=== PATIENT | female | born 1965 | race Caucasian/White ===

== ENCOUNTER → 2016-12-21 | Day surgery (SDC) | payer BC ==
[~2016-12-21] MED LIST: ESCI20TA PO; ESTR1.25 PO; IBUP200C PO; INCOBOTULINUMTOXINA 200 UNITS VIAL IM ONE; LANS30CA PO; SODIUM CHLORIDE 0.9% 10 ML VIAL ONE; TIRO100C PO; TIZA4CAP3 PO; TRAM50TA PO
--- NOTE | 2016-12-23 20:51 | M6 ---
cc: KATHYA GARCIA M.D. DATE: 12/21/2016. DATE OF : 1965. PROCEDURE PERFORMED: Injection botulinum toxin type A (Xeomin) left trapezius and posterior cervical musculature. DESCRIPTION OF THE PROCEDURE IN DETAIL: History and physical was completed and signed. Consent was signed. Procedure site was marked. Medications were listed and reconciled. Pain score was recorded. Allergies were noted. Time out was taken. Fluoroscopy time was recorded where applicable. Blood pressure cuff, pulse oximeter were applied. The patient was placed in the sitting position. The skin over the left trapezius and cervical area was prepped with alcohol. The areas of greatest spasticity were identified. A 27-gauge needle was used to inject a total of 150 units of Xeomin at six different locations corresponding to the areas of greatest spasticity. Following this, the patient was observed in the recovery area with stable vital signs prior to being discharged. W. MD DEVON Sanderson/ALDA /7:27 AM /8:50 PM
== END | disposition home or self-care (01) ==
LOC: PHSDC 06:37
PROVIDERS: ATTEND Pain Medicine Interventional Pain Medicine
DX: G24.8 Other dystonia (principal); Z88.2 Allergy status to sulfonamides
CPT/HCPCS: 64616; J0588